=== PATIENT | female | born 1975 | race Two or more races ===

== ENCOUNTER 2025-03-17 09:43 | Outpatient (CLI) | payer OTHER ==
[2025-03-17] VITALS (8 sets, daily range): BP systolic 105–124; BP diastolic 44–72; PULSE 42–70; RESP 12–18; O2SAT 95–99
[~2025-03-17] VITALS: Ht 180.3 cm; Wt 104.9 kg
[2025-03-17] MEDS ORDERED: IOHEXOL 300 MG/ML 100ML BOTTLE IJ ONE (13:48)
[2025-03-17] MEDS ORDERED: fentaNYL CITRATE 100 MCG/2 ML VL ONE (13:49)
[2025-03-17] MEDS ORDERED: MIDAZOLAM HCL 2MG/2ML 2ml VIAL (1mg/ml) ONE (13:49)
[2025-03-17] MEDS ORDERED: LIDOCAINE 2%HCL (LOCAL ANESTH.) INJ 20ML MDV ONE (13:50)
--- NOTE | 2025-03-17 17:00 | DVH ---
PROCEDURE: Epidural blood patch Procedural Personnel Attending physician(s): Radu Scott Fellow physician(s): None Resident physician(s): None Advanced practice provider(s): None Pre-procedure diagnosis: Post LP positional headache Post-procedure diagnosis: Same Indication: Post procedural headache Additional clinical history: None Complications: No immediate complications. IMPRESSION: L2/3 epidural blood patch. Plan: The patient tolerated the procedure well. The patient was transferred to the recovery area for an savage r of observation. PROCEDURE SUMMARY: - Epidural blood patch with fluoroscopic guidance - Additional procedure(s): None PROCEDURE DETAILS: Pre-procedure Consent: Informed consent for the procedure including risks, benefits and alternatives was obtained a nd time-out was performed prior to the procedure. Preparation: The site was prepared and draped using maximal sterile barrier technique including cutan eous antisepsis. Anesthesia/sedation Level of anesthesia/sedation: No sedation Anesthesia/sedation administered by: Not applicable Total intra-service sedation time (minutes): Not applicable Epidural blood Patch The patient was positioned prone . Local anesthesia was administered. Under image guidance, a needle was advanced into the midline epidural space with loss of resistance technique. Contrast injection co nfirmed epidural positioning. Injection of autologous blood was performed. Level: L2-L3 Needle: 18 gauge Tuohy Blood volume (mL): 12 Contrast Contrast agent: Omnipaque 300 Contrast volume (mL): 3 Radiation Dose Fluoroscopy time (seconds ): 38 Reference air kerma (mGy ): 20 Kerma area product (Gy-cm2 ): 1.6 Additional Details Additional description of procedure: None Registry event: V /3 /g Device used: None Equipment details: None Unique Device Identifiers: Not available Specimens removed: None Estimated blood loss (mL): Less than 10 Standardized report: [email or web address] Attestation Signer name: Radu Scott I attest that I was present for the entire procedure . I reviewed the stored images and agree with e report as written.
== END 2025-03-17 17:00 | disposition home or self-care (01) ==
LOC: XYW 09:43
DX: G97.1 Other reaction to spinal and lumbar puncture (principal); G44.89 Other headache syndrome; F17.210 Nicotine dependence, cigarettes, uncomplicated; Z88.6 Allergy status to analgesic agent; Z88.0 Allergy status to penicillin; Z91.09 Other allergy status, other than to drugs and biological substances; Z79.899 Other long term (current) drug therapy
CPT/HCPCS: 62273; 77003; J7040; Q9967; 62272; 99152; J2250